=== PATIENT | male | born 1970 ===

== ENCOUNTER → 2023-09-07 06:31 | Day surgery (SDC) | payer OTHER, SELFPAY | LOC: GI 06:31 | PROVIDERS: ATTENDING PHYSICIAN Internal Medicine Gastroenterology | DX: Z12.11 Encounter for screening for malignant neoplasm of colon (principal); Z86.010 Personal history of colon polyps; K57.30 Diverticulosis of large intestine without perforation or abscess without bleeding | CPT/HCPCS: G0105 ==

== ENCOUNTER → 2023-09-15 14:43 | Outpatient (REF) | payer OTHER, SELFPAY | LOC: EMG 14:43 | PROVIDERS: ATTENDING PHYSICIAN Physician Assistant | DX: R20.0 Anesthesia of skin (principal); R20.2 Paresthesia of skin; M79.2 Neuralgia and neuritis, unspecified | CPT/HCPCS: 95886; 95911 ==